=== PATIENT | male | born 1940 | race Caucasian/White ===

== ENCOUNTER 2016-12-07 07:31 | Emergency (ER) | payer MEDICARE ==
[~2016-12-07] VITALS: Ht 172.7 cm; Wt 71.8 kg
[2016-12-07] MEDS ORDERED: ONDANSETRON 2 MG/ML (Z0FRAN) 2 ML VIAL IV ONE (07:55)
[2016-12-07] MEDS ORDERED: morphine INJ 2 MG/ML 1 ML SYRINGE IV PRN (07:55)
[2016-12-07] MEDS ORDERED: KETOROLAC 30 MG/ML (TORADOL) 1 ML VIAL IV ONE (07:55)
--- NOTE | 2016-12-07 08:15 | NUR ---
STACEY PT USES CLEAN CATCH METHOD FOR COLLECTION
[2016-12-07 08:23] LABS: BASOPHILS % (AUTO) 0 % (0-2); EOSINOPHILS % (AUTO) 0 % (0-4); MEAN CORPUSCULAR HGB CONC 34.4 g/dL (31.0-37.0); MEAN CORPUSCULAR VOLUME 92 FL (80-100); MEAN PLATELET VOLUME 10.7 FL (6.0-9.5); MONOCYTES # (AUTO) 0.7 X10^3; MONOCYTES % (AUTO) 9 % (3-11); NEUTROPHILS # (AUTO) 5.8 X10^3; NEUTROPHILS % (AUTO) 78 % (51-67); PLATELET COUNT 184 10^3uL (150-450); WHITE BLOOD COUNT 7.43 10^3uL (4.0-11.0)
[2016-12-07 08:26] LABS: MEAN CORPUSCULAR HEMOGLOBIN 31.7 PG (26.0-34.0)
[2016-12-07 08:32] LABS: ALBUMIN 4.5 g/dL (3.4-5.0); ANION GAP 15.2 MEQ/L (3-15); CALCULATED IONIZED CALCIUM 4.2 mg/dL (3.8-4.6); TOTAL PROTEIN 7.2 g/dL (6.4-8.5)
[2016-12-07 09:07] LABS: BILIRUBIN,URINE Negative (Negative); CLARITY,URINE Clear; COLOR,URINE Yellow; GLUCOSE, URINE (UA) Negative (Negative); LEUKOCYTE ESTERASE ,URINE Negative (Negative); PH,URINE 5.5 (5.0 - 8.0); UROBILINOGEN,URINE 0.2 mg/dL (0.2-1.0)
[2016-12-07 09:08] LABS: RBC,URINE 0-2 /HPF
[2016-12-07 10:11] VITALS: BP 143/89
[2016-12-07 12:34] LABS: URINE CENTRIFUGED VOLUME 12 mL
== END 2016-12-07 10:22 | disposition home or self-care (01) ==
LOC: ED 07:35
DX: N20.1 Calculus of ureter (principal); R10.84 Generalized abdominal pain; M54.89 Other dorsalgia
CPT/HCPCS: 36415; 74176; 80053; 81003; 81015; 85025; 96374; 96375; 99283; J1885; J2270; J2405